=== PATIENT | female | born 1980 | race Caucasian/White ===

== ENCOUNTER 2023-04-09 05:54 | Day surgery (SDC) | payer OTHER, SELFPAY ==
[2023-04-09] VITALS (9 sets, daily range): BP systolic 101–140; BP diastolic 54–86; BMI 35.9
[2023-04-09] MEDS: CELEBREX 200 MG PO (06:07)
[2023-04-09] MEDS: TYLENOL 1000 MG PO (06:10)
[2023-04-09] MEDS: NORMOSOL-R 1000 IV (06:16)
== END 2023-04-09 09:45 | disposition home or self-care (01) ==
LOC: SDS 05:54
PROVIDERS: ATTENDING PHYSICIAN Orthopaedic Surgery
DX: S83.231A Complex tear of medial meniscus, current injury, right knee, initial encounter (principal); X58.XXXA Exposure to other specified factors, initial encounter
CPT/HCPCS: 29881

== ENCOUNTER → 2024-07-21 12:36 | Outpatient (REF) | payer OTHER, SELFPAY | LOC: WDC 12:36 | PROVIDERS: ATTENDING PHYSICIAN Obstetrics & Gynecology Gynecology; FAMILY PHYSICIAN Student in an Organized Health Care Education/Training Program | DX: Z12.31 Encounter for screening mammogram for malignant neoplasm of breast (principal) | CPT/HCPCS: 77063; 77067 ==

== ENCOUNTER → 2024-08-03 08:27 | Outpatient (REF) | payer OTHER, SELFPAY | LOC: WDC 08:27 | PROVIDERS: ATTENDING PHYSICIAN Obstetrics & Gynecology Gynecology; FAMILY PHYSICIAN Student in an Organized Health Care Education/Training Program | DX: R92.8 Other abnormal and inconclusive findings on diagnostic imaging of breast (principal) | CPT/HCPCS: 76642 ==